=== PATIENT | female | born 1985 | race Caucasian/White ===

== ENCOUNTER 2018-05-18 15:40 | Outpatient (CLI) | payer OTHER | END 2018-05-18 15:41 | disposition EMS.NT | LOC: EMS 15:40 | PROVIDERS: ATTEND Surgery | DX: M53.3 Sacrococcygeal disorders, not elsewhere classified (principal) ==

== ENCOUNTER 2018-05-18 16:04 | Emergency (ER) | payer OTHER ==
[2018-05-18] MEDS ORDERED: HYDROcod/ACETAM 5/325 MG TABLET PO STA (16:35)
--- NOTE | 2018-05-18 16:38 | ED Physician Documentation ---
History of Present Illness - Stated complaint Stated Complaint: FALL - Chief complaint Chief Complaint: Trauma Ch/Bk - History obtained from History obtained from: Patient - History of Present Illness Timing: Today (She came in from playing on the snow and slipped on wet feet probably backwards hitting her tailbone and right elbow. No head or neck injury. No headache. No other injuries. No possibility of . Pain especially in the tailbone is severe.) Review of Systems Constitutional: denies: Fever, Chills Respiratory: denies: Cough GI: denies: Abdominal Pain, Nausea, Vomiting : denies: Dysuria, Frequency PD PAST MEDICAL HISTORY - Past Medical History Cardiovascular: None Respiratory: None Neuro: None Endocrine/Autoimmune: None - Past Surgical History Past Surgical History: No - Present Medications Home Medications: Ambulatory Orders Medication Instructions Recorded Confirmed Cyclobenzaprine [Flexeril] 10 mg PO TID PRN #20 tablet 03/15/18 Hydrocodone/Acetaminophen 1 - 2 each PO Q6H PRN #14 tablet 03/15/18 [Hydrocodon-Acetaminophen 5-325] Hydrocodone/Acetaminophen 1 - 2 each PO Q6H PRN #14 tablet 05/18/18 [Hydrocodon-Acetaminophen 5-325] - Allergies Allergies/Adverse Reactions: Allergies Allergy/AdvReac Type Severity Reaction Status Date / Time No Known Drug Allergies Allergy Verified 03/15/18 09:34 - Social History Does the pt smoke?: No Smoking Status: Never smoker Does the pt drink ETOH?: Yes Does the pt have substance abuse?: No - POLST Patient has POLST: No PD ED PE NORMAL - Vitals Vital signs reviewed: Yes - General General: Alert and oriented X 3, No acute distress - HEENT HEENT: PERRL, EOMI - Neck Neck: Supple, no meningeal sign, No bony TTP - Cardiac Cardiac: RRR, No murmur - Respiratory Respiratory: No respiratory distress, Clear bilaterally - Abdomen Abdomen: Non tender - Back Back: Other (She is quite tender over the mid and lower sacrum.) - Extremities Extremities: Other (Tender over the radial head and olecranon more than the medial epicondyle. No supracondylar or wrist tenderness on the right.) - Neuro Neuro: Alert and oriented X 3, Normal speech - Psych Psych: Normal mood, Normal affect Results - Vitals Vitals: Vital Signs - 24 hr 05/18/18 16:22 Temperature 36.4 C L Heart Rate 75 Respiratory 15 Rate Blood Pressure 106/68 O2 Saturation 100 Oxygen O2 Source Room air - Rads (name of study) XRs R elbow and Sacrum Radiology: EMP read contemporaneously (NAD) Departure - Departure Disposition: 01 Home, Self Care Clinical Impression: Sacral contusion Qualifiers: Encounter type: initial encounter Qualified Code(s): S30.0XXA - Contusion of lower back and pelvis, initial encounter Contusion of elbow, right Qualifiers: Encounter type: initial encounter Qualified Code(s): S50.01XA - Contusion of right elbow, initial encounter Condition: Good Record reviewed to determine appropriate education?: Yes Instructions: ED Low Back Pain Injury Prescriptions: Hydrocodone/Acetaminophen [Hydrocodon-Acetaminophen 5-325] 1 - 2 each PO Q6H PRN #14 tablet PRN Reason: pain Comments: Recheck with your doctor in a week if not better. Return for new or worsening symptoms. Do not drink or drive while taking narcotic pain medication. Note that many narcotic pain relievers also contain Tylenol/acetaminophen. Please ensure that your total dose of acetaminophen from all sources does not exceed 3 g (3000 mg) per day. You may get constipated while on this medication. Take a stool softener such as Colace twice a day while you are on it. Also add an [id number] laxative such as senna or MiraLAX on any day that you do not have a bowel movement. If you received a narcotic pain medication or sedative while in the emergency department, do not drive for the next 24 hours.
--- NOTE | 2018-05-18 18:07 | XRAY Report ---
Reason: elbow/tailbone inj Procedure Date: 05/18/2018 Accession Number: [id number] / [id number] Procedure: XR - Elbow 3 View RT CPT Code: FULL RESULT: EXAM: RIGHT ELBOW RADIOGRAPHY EXAM DATE: 05/18/2018 05:28 PM. CLINICAL HISTORY: Elbow pain. COMPARISON: None. TECHNIQUE: 3 views. FINDINGS: Bones: Normal. No fractures or bone lesions. Joints: Normal. No effusion. No subluxation. Soft Tissues: Normal. No soft tissue swelling. IMPRESSION: Normal elbow radiography. [facility]
--- NOTE | 2018-05-18 18:08 | XRAY Report ---
Reason: elbow/tailbone inj Procedure Date: 05/18/2018 Accession Number: [id number] / [id number] Procedure: XR - Sacrum/Coccyx CPT Code: FULL RESULT: EXAM: SACRUM AND COCCYX RADIOGRAPHY EXAM DATE: 05/18/2018 05:28 PM. HISTORY: Pain after fall. COMPARISONS: None. TECHNIQUE: 2 views. FINDINGS: Alignment: Normal. The sacrum and coccyx are normally aligned. Normal segmentation at the sacrococcygeal junction. Bones: Normal. No fracture or bone lesion. Joints: The visualized hips appear unremarkable. Some early arthritic changes of both SI joints. Soft Tissues: Unremarkable. IMPRESSION: 1. No fractures are noted. 2. Normal segmentation of the sacrococcygeal junction. 3. Some early arthritic changes at both SI joints. [facility]
[2018-05-18] MEDS ORDERED: HYDROcod/ACET 5/325 Prepack 4 PO STA (18:17)
[2018-05-18 18:36] VITALS: BP 99/58
== END 2018-05-18 18:36 | disposition home or self-care (01) ==
LOC: EDUNIT# → ED 16:04
DX: S30.0XXA Contusion of lower back and pelvis, initial encounter (principal); S50.01XA Contusion of right elbow, initial encounter; W01.0XXA Fall on same level from slipping, tripping and stumbling without subsequent striking against object, initial encounter; Y92.009 Unspecified place in unspecified non-institutional (private) residence as the place of occurrence of the external cause
CPT/HCPCS: 72220; 73080; 99283; A9270